=== PATIENT | female | born 1965 | race Caucasian/White ===

== ENCOUNTER 2021-12-22 12:47 | Emergency (ER) | payer BC ==
[~2021-12-22] VITALS: Ht 165.1 cm; Wt 74.8 kg
[2021-12-22] MEDS ORDERED: DICYCLOMINE HCL10 MG PO (14:28)
[2021-12-22] MEDS ORDERED: IBU800 M2 PO (14:28)
[2021-12-27] MEDS ORDERED: VIBRAMYCIN100 MG PO (12:19)
== END 2021-12-22 15:41 | disposition home or self-care (01) ==
LOC: ED 12:47
DX: S62.637A Displaced fracture of distal phalanx of left little finger, initial encounter for closed fracture (principal); S61.217A Laceration without foreign body of left little finger without damage to nail, initial encounter; Z88.8 Allergy status to other drugs, medicaments and biological substances; X58.XXXA Exposure to other specified factors, initial encounter; Y93.89 Activity, other specified; Y92.89 Other specified places as the place of occurrence of the external cause; Y99.8 Other external cause status

== ENCOUNTER → 2022-09-20 | Outpatient (CLI) | payer BC ==
[~2022-09-20] MED LIST: DICYCLOMINE HCL10 MG PO; IBU800 M2 PO; VIBRAMYCIN100 MG PO
== END | disposition home or self-care (01) ==
LOC: RESCLI 15:29
PROVIDERS: ATTEND Internal Medicine
DX: E11.9 Type 2 diabetes mellitus without complications (principal); Z00.00 Encounter for general adult medical examination without abnormal findings; E55.9 Vitamin D deficiency, unspecified; B00.9 Herpesviral infection, unspecified; I10 Essential (primary) hypertension; F32.9 Major depressive disorder, single episode, unspecified; N20.0 Calculus of kidney; E78.5 Hyperlipidemia, unspecified; M10.9 Gout, unspecified; Z98.890 Other specified postprocedural states; Z79.899 Other long term (current) drug therapy

== ENCOUNTER → 2023-09-19 | Outpatient (CLI) | payer BC | END | disposition home or self-care (01) | LOC: RESCLI 08:07 | PROVIDERS: ATTEND Student in an Organized Health Care Education/Training Program | DX: E11.9 Type 2 diabetes mellitus without complications (principal); Z00.00 Encounter for general adult medical examination without abnormal findings; E55.9 Vitamin D deficiency, unspecified; B00.9 Herpesviral infection, unspecified; F32.9 Major depressive disorder, single episode, unspecified; E78.5 Hyperlipidemia, unspecified; M10.9 Gout, unspecified; N20.0 Calculus of kidney; Z79.84 Long term (current) use of oral hypoglycemic drugs; Z79.899 Other long term (current) drug therapy; Z98.890 Other specified postprocedural states ==